=== PATIENT | male | born 1990 | race Caucasian/White ===

== ENCOUNTER 2016-11-20 21:36 | Emergency (ER) | payer SELFPAY ==
[~2016-11-20] VITALS: Ht 175.3 cm; Wt 115.5 kg
[~2016-11-20 21:36] MED LIST: IPRA14.76
[2016-11-20 21:40] VITALS: Ht 175.3 cm; Wt 115.5 kg
--- NOTE | 2016-11-20 22:19 | ERD ---
ER Documentation Chief Complaint Date/Time DATE: 11/20/16 TIME: 22:14 Chief Complaint laceration left thumb HPI 26-year-old male presents to emergency department for evaluation of the skin portion laceration that he has on the left thumb, patient actually cut off a part of the left thumb while using a knife 5 days ago. Patient was seen in a different hospital, was given antibiotics to prevent infection, patient was unable to fill the prescription. Today, he is worried because he continues to have the pain, throbbing pain, 6/10 scale worse upon touching the area. Patient denies any fever or chills. Patient is not taking any medications to up with the pain, has not taken antibiotics given to him. ROS All systems reviewed and are negative except as per history of present illness. Medications Home Meds Reported Medications Albuterol/Ipratropium (Combivent) 14.7 Gm Inha 09/01/11 Allergies Allergies: Coded Allergies: No Known Allergies (Verified Allergy, Mild, 08/11/11) PMhx/Soc Medical and Surgical Hx: pt denies Medical Hx, pt denies Surgical Hx History of Surgery: No Anesthesia Reaction: No Hx Neurological Disorder: No Hx Respiratory Disorders: No Hx Cardiac Disorders: No Hx Psychiatric Problems: No Hx Miscellaneous Medical Probl: No Hx Alcohol Use: Yes Hx Substance Use: No Hx Tobacco Use: No FmHx Family History: No coronary disease, No diabetes, No other Physical Exam Vitals Vital Signs Date Time Temp Pulse Resp B/P Pulse Ox O2 Delivery O2 Flow Rate FiO2 11/20/16 21:40 97.8 94 20 154/99 98 Physical Exam GENERAL: The patient is well developed and appropriate for usual state of health, in no apparent distress. CHEST: Clear to auscultation bilaterally. There are no rales, wheezes or rhonchi. HEART: Regular rate and rhythm. No murmurs, clicks, rubs or gallops. No S3 or S4. ABDOMEN: Soft, nontender and nondistended. Good bowel sounds. No rebound or guarding. No gross peritonitis. No gross organomegaly or masses. No Mart sign or McBurney point tenderness. BACK: No midline or flank tenderness. EXTREMITIES: Equal pulses bilaterally. There is no peripheral clubbing, cyanosis or edema. No focal swelling or erythema. Full range of motion. Grossly neurovascularly intact. NEURO: Alert and oriented. Cranial nerves 2-12 intact. Motor strength in all 4 extremities with 5/5 strength. Sensation grossly intact. Normal speech and gait. SKIN: Skin avulsion laceration wound on the tip of the left thumb, no erythema surrounding the area, no purulent discharge. There is no apparent ecchymosis or petechia. The skin is warm and dry. HEMATOLOGIC AND LYMPHATIC: There is no evidence of excessive bruising or lymphedema. No gross cervical, axillary, or inguinal lymphadenopathy. Results 24 hrs Current Medications Medications (Trade) Dose Ordered Sig/Amadeo Route PRN Reason Start Time Stop Time Status Last Admin Dose Admin Cefazolin Sodium (Ancef) 1 gm ONCE ONCE IM 11/20/16 22:30 11/20/16 22:31 Ancef was given here in emergency department prevent infection of the affected area. Afterwards, the wound was rewrapped. Procedures/MDM Medical Decision Making: Patient's pain is most likely consistent with a skin avulsion laceration wound noted in the area. No symptoms of any infection at this time.. There is no suspicion for neurovascular compromise. Patient has intact sensation and circulation of the affected extremity. There is low suspicion for septic arthritis. Patient does not have any fever. Etiology is not indicated at this time. Disposition: Home. Patient is given prescription for ibuprofen for pain, Homer for severe pain, advised to fill prescription of antibiotics given.. Patient was advised to elevate the affected area and apply ice on affected area. Patient was advised that if symptoms are worse, numbness, tingling, high fever, unable to move joint, worsening symptoms, to return to emergency department immediately. Otherwise, patient is advised to follow up with the primary care doctor in 5-7 days for reevaluation of symptoms. Departure Diagnosis: Primary Impression: Avulsion of skin of finger Encounter type: initial encounter Qualified Code: S61.209A - Avulsion of skin of finger, initial encounter Condition: Stable Patient Instructions: Skin Avulsion Additional Instructions: Patient is given prescription for ibuprofen for pain, Homer for severe pain, advised to fill prescription of antibiotics given.. Patient was advised to elevate the affected area and apply ice on affected area. Patient was advised that if symptoms are worse, numbness, tingling, high fever, unable to move joint , worsening symptoms, to return to emergency department immediately. Otherwise, patient is advised to follow up with the primary care doctor in 5-7 days for reevaluation of symptoms. CHERELLE PRINCE NP Nov 20, 2016 22:18
[2016-11-20] MEDS ORDERED: IBUP-1542 PO (22:20)
[2016-11-20] MEDS ORDERED: HYDR-906 PO (22:20)
[2016-11-20] MEDS ORDERED: CEFAZOLIN 1 GM INJ IM ONE (22:30)
== END 2016-11-20 22:56 | disposition home or self-care (01) ==
LOC: FTE 21:36
DX: S61.012A Laceration without foreign body of left thumb without damage to nail, initial encounter (principal); W26.0XXA Contact with knife, initial encounter; Y92.9 Unspecified place or not applicable
CPT/HCPCS: 96372; 99284; J0690

== ENCOUNTER 2018-09-26 18:50 | Emergency (ER) | payer OTHER ==
[~2018-09-26] VITALS: Ht 180.3 cm; Wt 110.0 kg
[~2018-09-26 18:50] MED LIST changes: +HYDR-4011 PO; +IBUP-1542 PO
[2018-09-26 19:01] VITALS: Ht 180.3 cm; Wt 110.0 kg
--- NOTE | 2018-09-26 19:34 | EN ---
Date/Time of Note Date/Time of Note DATE: 09/26/18 TIME: 19:31 ER Progress Note Quick RME note: Medical screening exam was initiated and lab/imaging studies were ordered. Patient will be seen in ED 2 by another provider. HPI: 28-year-old male presents the ER for concerns of cough and bloody sputum for the last 2 days. Patient states his symptoms started after he drank alcohol, smoked cigarettes and had cocaine. Patient denies any fevers or chills. Patient also reports rectal bleeding. Patient states his blood in his stools. Physical exam: GENERAL: Well-developed, well-nourished male. Appears in no acute distress. Speaking on cell phone HEAD: Normocephalic, atraumatic. EYES: Pupils are equally reactive bilaterally. EOMs grossly intact. No conjunctival erythema. NECK: Supple. No meningismus. Normal range of motion of the neck. LUNG: Clear to auscultation bilaterally. No rhonchi, wheezing, rales or coarse breath sounds. HEART: Tachycardic. No murmurs, rubs or gallops. EXTREMITIES: Equal pulses bilaterally. No peripheral clubbing, cyanosis or edema. No unilateral leg swelling. NEUROLOGIC: Alert and oriented. Moving all four extremities without any difficulty. Normal speech. Steady gait. SKIN: Normal color. Warm and dry. No rashes or lesions. Further work-up pending ED 2 provider evaluation. SANJEEV BASILIO PA-C September 26, 2018 19:34
--- NOTE | 2018-09-26 20:39 | ERD ---
ER Documentation Chief Complaint Chief Complaint coughing x 2 days. no fever, sob. HPI This is a 28-year-old female is a 28-year-old male who presents here in emergency department with complaints of throat pain, productive cough with streaks of blood for 2 days. Stated that he has been taking cocaine, meth and alcohol but has stopped last November 2017. Also stated that he has history of hypertension and was prescribed losartan 100 mg daily but has stopped this for 2 months. Also stated that he has history of albuterol but has not had asthma attack until 2 days ago. Denies headache, head injury, loss of consciousness, dizziness, neck pain, neck stiffness, throat pain, difficulty swallowing, difficulty breathing lying flat, shoulder pain, chest pain, back pain, abdominal pain, nausea, vomiting, constipation, diarrhea, urinary symptoms, loss of bowel and bladder control, trauma, injury, falls, difficulty walking due to pain, numbness or tingling sensation, calf pain, recent travel, recent major surgery in the last 3 weeks, calf pain, recent long travel, recent exposure to any illness, recent antibiotic use in the last 3 months, fever, chills, seizures. Past medical history: Hypertension. Asthma. Surgical history: Denies. Social: Admits use of cocaine, meth and alcohol. Stated that his last dose was November 2017. ROS All systems reviewed and are negative except as per history of present illness. Medications Home Meds Active Scripts Famotidine* (Pepcid*) 20 Mg Tablet, 40 MG PO DAILY for 30 Days, TAB Prov:PASILAMARY PRUETT 09/26/18 Prednisone* (Prednisone*) 20 Mg Tab, 40 MG PO DAILY for 4 Days, TAB Prov:PASILAMARY PRUETT F 09/26/18 Hydroxyzine Hcl* (Hydroxyzine Hcl*) 50 Mg Tablet, 50 MG PO Q6H PRN for ANXIETY, #30 TAB Prov:PASILAMARY PRUETT F 09/26/18 Albuterol Sulfate* (Proair HFA*) 8.5 Gm Hfa.aer.ad, 2 PUFF INH Q4 PRN for WHEEZING, #1 INHALER Prov:PASILAMARY PRUETT F 09/26/18 Losartan Potassium* (Losartan Potassium*) 100 Mg Tablet, 100 MG PO DAILY, #30 TAB Prov:PASILABANMARY F 5/24/19 Hydrocodone/Acetaminophen ([place] 5-325 Tablet) 1 Each Tablet, 1 TAB PO Q6H PRN for SEVERE PAIN LEVEL 7-10, #20 TAB Prov:CHERELLE PRINCE [employer]OR [employer] 11/20/16 Ibuprofen* (Motrin*) 600 Mg Tab, 600 MG PO Q6H PRN for PAIN AND OR ELEVATED TEMP, #30 TAB Prov:CHERELLE PRINCE [employer] 11/20/16 Reported Medications Albuterol/Ipratropium (Combivent) 14.7 Gm Inha 09/01/11 Allergies Allergies: Coded Allergies: No Known Allergies (Verified Allergy, Mild, 09/26/18) PMhx/Soc History of Surgery: No Anesthesia Reaction: No Hx Neurological Disorder: No Hx Respiratory Disorders: No Hx Cardiac Disorders: No Hx Psychiatric Problems: No Hx Miscellaneous Medical Probl: No Hx Alcohol Use: Yes Hx Substance Use: No Hx Tobacco Use: No Physical Exam Vitals Physical Exam Const: No acute distress Head: Atraumatic Eyes: Normal Conjunctiva. ENT: Normal External Ears, Nose and Mouth. Bilateral ears: TMs are not erythematous. No bleeding. No discharge with no hearing loss. No mastoid tenderness. Nose: Midline without deviation. No septal hematoma. Throat: Uvula is midline and nondisplaced. Tonsils are +1 bilaterally without redness without exudates. Tolerating secretions. Patent airway. Speaks full and clear sentences. No tripoding. No drooling. Neck: Full range of motion. No meningismus. No nuchal rigidity. No signs of meningeal irritation. No swelling. Resp: Clear to auscultation bilaterally. No vesicular lesions. Respirations even and unlabored. No accessory muscle use in breathing. Cardio: Regular rate and rhythm, no murmurs Abd: Soft, non tender, non distended. Normal bowel sounds. Negative Mart sign. Negative Hubbard sign (heel jar test). Negative psoas sign. Negative Rovsing sign. No CVA tenderness. Rectal area: No bleeding. No discharge. No external hemorrhoids. No signs of perirectal abscess. Skin: No petechiae or rashes. Color appears normal for ethnicity. No paleness. No skin tenting. No signs of severe dehydration. Back: No midline or flank tenderness. No CVA tenderness. Ext: No cyanosis, or edema Neur: Awake and alert. No neurological deficits. Psych: Normal Mood and Affect Results 24 hrs Laboratory Tests Test 09/26/18 20:47 09/26/18 21:00 White Blood Count 10.2 10^3/ul Red Blood Count 5.48 10^6/ul Hemoglobin 16.5 g/dl Hematocrit 48.2 % Mean Corpuscular Volume 88.0 fl Mean Corpuscular Hemoglobin 30.1 pg Mean Corpuscular Hemoglobin Concent 34.2 g/dl Red Cell Distribution Width 12.1 % Platelet Count 230 10^3/UL Mean Platelet Volume 11.8 fl Immature Granulocytes % 0.300 % Neutrophils % 71.3 % Lymphocytes % 19.2 % Monocytes % 6.9 % Eosinophils % 1.8 % Basophils % 0.5 % Nucleated Red Blood Cells % 0.0 /100WBC Immature Granulocytes # 0.030 10^3/ul Neutrophils # 7.3 10^3/ul Lymphocytes # 2.0 10^3/ul Monocytes # 0.7 10^3/ul Eosinophils # 0.2 10^3/ul Basophils # 0.1 10^3/ul Nucleated Red Blood Cells # 0.0 10^3/ul Sodium Level 142 mmol/L Potassium Level 4.2 mmol/L Chloride Level 106 mmol/L Carbon Dioxide Level 29 mmol/L Anion Gap 7 Blood Urea Nitrogen 14 mg/dl Creatinine 0.81 mg/dl Est Glomerular Filtrat Rate mL/min > 60 mL/min Glucose Level 112 mg/dl Calcium Level 9.3 mg/dl Total Bilirubin 0.4 mg/dl Direct Bilirubin 0.00 mg/dl Indirect Bilirubin 0.4 mg/dl Aspartate Amino Transf (AST/SGOT) 27 IU/L Alanine Aminotransferase (ALT/SGPT) 30 IU/L Alkaline Phosphatase 77 IU/L Total Protein 7.6 g/dl Albumin 4.2 g/dl Globulin 3.40 g/dl Albumin/Globulin Ratio 1.23 Stool Occult Blood NEGATIVE Current Medications Medications Dose Sig/Amadeo Start Time Status Last (Trade) Ordered Route PRN Stop Time Admin Dose Reason Admin Famotidine 40 mg ONCE ONCE 09/26/18 DC 09/26/18 (Pepcid) PO 21:00 20:54 09/26/18 21:01 Ondansetron 4 mg ONCE STAT 09/26/18 DC 09/26/18 HCl (Zofran ODT 20:40 20:54 Odt) 09/26/18 20:44 Losartan 100 mg ONCE ONCE 09/26/18 DC 09/26/18 Potassium PO 21:00 20:55 (Cozaar) 09/26/18 21:01 Prednisone 60 mg ONCE ONCE 09/26/18 DC 09/26/18 (Prednisone) PO 21:00 20:55 09/26/18 21:01 Procedures/MDM Diagnostic tests: Chest x-ray: Elevated right hemidiaphragm. Clear lungs. Blood works: Reviewed. Stool for OB: Negative. Treatment: Prednisone. Pepcid. Losartan. Re-evaluation: Denies chest pain, dizziness, abdominal pain, back pain, rectal bleeding. Ambulatory with steady gait and without pain to lower abdomen/back pain/rectal area. Stated that he is comfortable going home. Differential diagnosis I have low suspicion for anemia, septal hematoma, hemorrhage, pneumonia, tuberculosis, viola-rectal abscess, thrombosed hemorrhoids, Final diagnosis: Cough. Bronchitis possibly viral. Asthma. Prescription: Refill of losartan 100 mg daily. Pro-air refill. Hydroxyzine. Follow-up with PCP in the next 24-48 hours. Come back here in the emergency department for any new symptoms or any worsening symptoms. All questions and concerns were answered. Patient and family members verbalized understanding and agreed with plan of care. Hemodynamically stable on discharge. Departure Diagnosis: Primary Impression: Cough Additional Impressions: Medication refill Anxiety Condition: Stable Additional Instructions: Follow-up with PCP in the next 24-48 hours. Come back here in the emergency department for any new symptoms or any worsening symptoms. MARY PIPER September 26, 2018 20:39
[2018-09-26] MEDS ORDERED: ONDANSETRON (ODT) 4 MG TAB ODT STA (20:40)
[2018-09-26] MEDS ORDERED: predniSONE 20 MG TAB PO ONE (21:00)
[2018-09-26] MEDS ORDERED: LOSARTAN 50 MG TAB PO ONE (21:00)
[2018-09-26] MEDS ORDERED: FAMOTIDINE 20 MG TAB PO ONE (21:00)
[2018-09-26] MEDS ORDERED: LOSA100T15 PO (22:28)
[2018-09-26] MEDS ORDERED: ALBU8.5H8 INH (22:29)
[2018-09-26] MEDS ORDERED: PRED20TA PO (22:29)
[2018-09-26] MEDS ORDERED: FAMO-96 PO (22:29)
[2018-09-26] MEDS ORDERED: HYDR50TA15 PO (22:29)
[2018-09-26 22:38] VITALS: BP 145/96; PULSE 60; RESP 18
== END 2018-09-26 22:39 | disposition home or self-care (01) ==
LOC: FTE 18:50
DX: F41.9 Anxiety disorder, unspecified (principal); Z76.0 Encounter for issue of repeat prescription
CPT/HCPCS: 36415; 71046; 80053; 82270; 85025; J7512; Z7502; Z7610